=== PATIENT | female | born 1960 | race Caucasian/White ===

== ENCOUNTER 2017-09-18 21:31 | Emergency (ER) | payer BC ==
[2017-09-18] MEDS ORDERED: DOXYcycline CAP(*) 100 MG PO ONE (21:54)
[2017-09-18 21:59] VITALS: BP 137/86
--- NOTE | 2017-09-18 22:15 | UC ---
Skin Complaint HPI - HPI Summary HPI Summary: PATIENT PRESENTS WITH 4 DAYS OF EXPANDING AREA OF ERYTHEMA LEFT THIGH AT THE SITE OF A LIKELY INSECT BITE. SHE DENIES ANY FEVER, HEADACHE, MYALGIAS OR ARTHRALGIAS. HER DOG WAS RECENTLY TREATED FOR LYME DISEASE THAT SHE IS VERY CONCERNED ABOUT THIS AND IS REQUESTING DOXYCYCLINE FOR LYME DISEASE. - History of Current Complaint Chief Complaint: UCLowerExtremity Time Seen by Provider: 09/18/17 21:37 Stated Complaint: TICK BITE Hx Obtained From: Patient Onset/Duration: Gradual Onset, Lasting Days, Still Present Timing: Constant Onset Severity: Moderate Current Severity: Moderate Pain Intensity: 0 Pain Scale Used: 0-10 Numeric Location: Discrete - LEFT THIGH Aggravating Factor(s): Touch Alleviating Factor(s): Nothing Associated Signs & Symptoms: Positive: Tenderness. Negative: Nausea, Fever, Chills, Cough, Throat Tightening, Abdominal Pain, Red Streaks Related History: Insect Bite/Sting - Allergy/Home Medications Allergies/Adverse Reactions: Allergies Allergy/AdvReac Type Severity Reaction Status Date / Time MS Latex [Latex] Allergy Intermediate SENSITIVITY Verified 09/18/17 21:59 MS Codeine [Codeine] Allergy Nausea Verified 09/18/17 21:59 MS Fentanyl [Fentanyl] Allergy Nausea Verified 09/18/17 21:59 Review of Systems Constitutional: Negative Skin: Rash Respiratory: Negative Cardiovascular: Negative Gastrointestinal: Negative Musculoskeletal: Negative Neurological: Negative All Other Systems Reviewed And Are Negative: Yes PMH/Surg Hx/FS Hx/Imm Hx - Additional Past Medical History Additional PMH: SEASONAL ALLERGIES Cardiovascular History: Hypertension - Surgical History Surgical History: Yes Surgery Procedure, Year, and Place: GAMMA KNIFE SURGERY LEFT ACOUSTIC NEUROMA. 03/2017 - [facility] - Family History Known Family History: Positive: Hypertension Negative: Diabetes - Social History Alcohol Use: Occasionally Substance Use Type: None Smoking Status (MU): Never Smoked Tobacco - Immunization History Most Recent Influenza Vaccination: 2016 Most Recent Tetanus Shot: 2007 Most Recent Pneumonia Vaccination: never Physical Exam Triage Information Reviewed: Yes Appearance: Well-Appearing, No Pain Distress, Well-Nourished Vital Signs: Initial Vital Signs Temp 98.8 F 09/18/17 21:53 Pulse 88 09/18/17 21:53 Resp 18 09/18/17 21:53 BP 137/86 09/18/17 21:53 Pulse Ox 96 09/18/17 21:53 Vital Signs Reviewed: Yes Eyes: Positive: Conjunctiva Clear ENT: Positive: Hearing grossly normal Neck: Positive: Supple Respiratory: Positive: No respiratory distress, No accessory muscle use Cardiovascular: Positive: Pulses Normal Abdomen Description: Positive: Soft Musculoskeletal: Positive: No Edema Neurological: Positive: Alert Psychological: Positive: Age Appropriate Behavior Skin: Positive: Other - 16CM X 13CM AREA OF ERYTHEMA LEFT THIGH WITH CENTRAL PUNCTUM. ERYTHEMA IS DARKER CENTRALLY AND FADES TO THE OUTSIDE. SLIGHTLY INDURATED CENTRALLY. NO DRAINAGE Course/Dx - Course Course Of Treatment: DISCUSSED WITH PATIENT THAT APPEARANCE OF HER RASH IS MORE CONSISTENT WITH CELLULITIS THAT WITH ERYTHEMA MIGRANS AND THAT WITH NO OTHER SYMPTOMS CONSISTENT WITH LYME DISEASE DOXYCYCLINE WAS LIKELY NOT NECESSARY. PATIENT IS VERY CONCERNED ABOUT LYME DISEASE AND IS REQUESTING DOXYCYCLINE. WILL TREAT FOR LYME DISEASE AND HAVE PATIENT FOLLOW-UP WITH HER PCP. PATIENT DECLINES LAB TESTING TODAY. - Diagnoses Provider Diagnoses: CELLULITIS - LEFT THIGH Discharge - Sign-Out/Discharge Documenting (check all that apply): Discharge/Admit/Transfer - Discharge Plan Condition: Stable Disposition: HOME Prescriptions: Doxycycline Monohydrate [Doxycycline Monohydrate] 1 cap PO BID #41 cap Patient Education Materials: Cellulitis (ED) Referrals: Denita Moscoso MD [Primary Care Provider] - If Needed Additional Instructions: YOUR RASH IS NOT CLASSIC FOR LYME DISEASE AND GIVEN YOUR LACK OF OTHER SYMPTOMS YOU LIKELY HAVE A CELLULITIS. GIVEN YOUR CONCERN FOR LYME AND YOUR KNOWN TICK EXPOSURE WILL GO AHEAD AND TREAT WITH DOXY. FOLLOW-UP WITH YOUR PCP IF YOU ARE NOT IMPROVING EXPECTED. The majority of patients with early Lyme disease who receive appropriate antibiotic therapy have complete resolution of the signs and symptoms of infection within 20 days and, in one trial, erythema migrans (the rash) and its associated symptoms resolved in a mean of five to six days. Patients who are more systemically ill at the beginning of treatment may take longer to recover. Some patients have mild subjective symptoms, such as headache, musculoskeletal pain, arthralgia, or fatigue, that persist for weeks to months after treatment. These subjective findings often resolve spontaneously, usually within six months , without further antibiotic therapy; they are not due to ongoing active Lyme disease. Almost all patients who have a satisfactory response to antibiotic therapy do well over the meterman. - Billing Disposition and Condition Condition: STABLE Disposition: Home
== END 2017-09-18 22:10 | disposition home or self-care (01) ==
LOC: UCEAST 21:31
DX: L03.116 Cellulitis of left lower limb (principal); I10 Essential (primary) hypertension; J30.2 Other seasonal allergic rhinitis; Z88.5 Allergy status to narcotic agent; Z91.040 Latex allergy status; Z82.49 Family history of ischemic heart disease and other diseases of the circulatory system
CPT/HCPCS: 99212; A9270-GY; G0463